=== PATIENT | male | born 1965 | race Caucasian/White ===

== ENCOUNTER 2017-08-10 11:57 | Inpatient (IN) | payer MEDICAID ==
[~2017-08-10] VITALS: Ht 172.7 cm; Wt 101.4 kg
[~2017-08-10 11:57] MED LIST: ACID1TAB3 PO; ERTA1VIA IV; [UNRECOGNIZED DRUG - REMARK]
[2017-08-10 13:27] LABS: BASOPHILS # (AUTO) 0.03 x10^3/uL (0-0.1); BASOPHILS % (AUTO) 1 % (0-1); EOSINOPHILS # (AUTO) 0.12 x10^3/uL (0-0.4); EOSINOPHILS % (AUTO) 2 % (1-7); LYMPHOCYTES # (AUTO) 0.99 x10^3/uL (1-3.4); LYMPHOCYTES % (AUTO) 15 % (22-44); MD NO; MEAN CORPUSCULAR HEMOGLOBIN 29.7 pg (27.5-34.5); MEAN CORPUSCULAR HGB CONC 34.1 g/dL (33.2-36.2); MEAN CORPUSCULAR VOLUME 87.1 fL (81-97); MEAN PLATELET VOLUME 9.6 fL (7.4-10.4); MONOCYTES # (AUTO) 0.53 x10^3/uL (0.2-0.8); MONOCYTES % (AUTO) 8 % (2-9); NEUTROPHILS # (AUTO) 4.83 x10^3/uL (1.8-6.8); NEUTROPHILS % (AUTO) 74 % (42-75); PLATELET COUNT 257 x10^3/uL (130-400); RED CELL DISTRIBUTION WIDTH 13.9 % (9.4-14.8)
[2017-08-10 13:32] LABS: ALBUMIN 3.1 g/dL (3.4-5.0); ANION GAP 7 mmol/L (5-15); CALCIUM 8.3 mg/dL (8.5-10.1); CHLORIDE 110 mmol/L (98-107); CREATININE 0.85 mg/dL (0.7-1.3)
[2017-08-10] MEDS ORDERED: ONDANSETRON 2MG/ML, 2ML IVPush ONE (14:30)
[2017-08-10] MEDS ORDERED: SODIUM CHLORIDE 0.9% 1,000ML IVBOLUS ONE (14:30)
[2017-08-10] MEDS ORDERED: AMPICILLIN/SULBACTAM 3 GM in SODIUM CHLORIDE 0.9% 100 ML IVPB ONE (14:30)
[2017-08-10] MEDS ORDERED: MORPHINE SULFATE 4 MG/ML, 1ML IVPush PRN (14:30)
[2017-08-10] MEDS ORDERED: MORPHINE SULFATE 4 MG/ML, 1ML ONE (15:07)
[2017-08-10] MEDS ORDERED: ONDANSETRON 2MG/ML, 2ML ONE (15:07)
[2017-08-10] MEDS ORDERED: LABETALOL 5MG/ML, 20ML IVPush PRN (16:00)
[2017-08-10] MEDS ORDERED: BISACODYL 10 MG SUPP PR PRN (16:00)
[2017-08-10] MEDS ORDERED: ACETAMINOPHEN 325 MG TABLET PO PRN (16:00)
[2017-08-10] MEDS ORDERED: ENALAPRILAT 1.25 MG/ML, 2ML IVPush PRN (16:00)
[2017-08-10] MEDS ORDERED: ONDANSETRON 2MG/ML, 2ML IVPush PRN (16:00)
[2017-08-10] MEDS ORDERED: ONDANSETRON ODT 4 MG PO PRN (16:00)
[2017-08-10 16:58] LABS: HCT (SEDRATE) 43.4 % (39.2-51.8)
[2017-08-10] MEDS: HEPARIN 5,000 UNITS/ML, 1ML SQ SCH (17:34)
[2017-08-10] MEDS: SODIUM CHLORIDE 0.9% 1,000 ML IV SCH (17:35)
[2017-08-10 18:41] VITALS: BP 118/74
[2017-08-10] MEDS ORDERED: DOCUSATE 100 MG CAPSULE PO PRN (21:00)
[2017-08-10] MEDS: AMPICILLIN/SULBACTAM 3 GM in SODIUM CHLORIDE 0.9% 100 ML IV SCH (21:31)
[2017-08-10] MEDS: MORPHINE SULFATE 4 MG/ML, 1ML IVPush PRN (21:31)
[2017-08-11 02:00] VITALS: BP 110/72
[2017-08-11] MEDS: HEPARIN 5,000 UNITS/ML, 1ML SQ SCH ×3 (03:31→21:31)
[2017-08-11] MEDS: AMPICILLIN/SULBACTAM 3 GM in SODIUM CHLORIDE 0.9% 100 ML IV SCH ×4 (03:31→21:31)
[2017-08-11 05:48] LABS: BASOPHILS # (AUTO) 0.05 x10^3/uL (0-0.1); BASOPHILS % (AUTO) 1 % (0-1); EOSINOPHILS % (AUTO) 3 % (1-7); LYMPHOCYTES # (AUTO) 1.57 x10^3/uL (1-3.4); LYMPHOCYTES % (AUTO) 25 % (22-44); MD NO; MEAN CORPUSCULAR HEMOGLOBIN 29.5 pg (27.5-34.5); MEAN CORPUSCULAR HGB CONC 33.5 g/dL (33.2-36.2); MEAN CORPUSCULAR VOLUME 88.1 fL (81-97); MEAN PLATELET VOLUME 9.3 fL (7.4-10.4); MONOCYTES # (AUTO) 0.75 x10^3/uL (0.2-0.8); MONOCYTES % (AUTO) 12 % (2-9); NEUTROPHILS # (AUTO) 3.68 x10^3/uL (1.8-6.8); NEUTROPHILS % (AUTO) 59 % (42-75); PLATELET COUNT 251 x10^3/uL (130-400); RED BLOOD COUNT 4.59 x10^6/uL (4.38-5.82); RED CELL DISTRIBUTION WIDTH 13.6 % (9.4-14.8)
[2017-08-11 06:01] LABS: CHLORIDE 111 mmol/L (98-107)
[2017-08-11 06:08] LABS: ANION GAP 7 mmol/L (5-15); CALCIUM 7.6 mg/dL (8.5-10.1); CHOL/HDL RATIO 4.8; CHOLESTEROL, TOTAL 116 mg/dL (140-239); CREATININE 0.93 mg/dL (0.7-1.3); HDL CHOL % 21 % (26-37); HDL CHOLESTEROL (DIRECT) 24 mg/dL (40-60); LDL CHOLESTEROL,CALCULATED 71 mg/dL (54-169); TRIGLYCERIDES 105 mg/dL (50-200); VLDL CHOLESTEROL 21 mg/dL (0-25)
[2017-08-11 08:17] VITALS: BP 101/49
[2017-08-11] MEDS: MORPHINE SULFATE 4 MG/ML, 1ML IVPush PRN ×3 (08:23→20:38)
[2017-08-11] MEDS: SODIUM CHLORIDE 0.9% 1,000 ML IV SCH ×2 (08:25→21:31)
[2017-08-11] MEDS: SENNA/DOCUSATE TABLET PO SCH (09:00)
[2017-08-11] MEDS ORDERED: GADOBUTROL 10 MMOL/10 ML PFS ONE (11:52)
[2017-08-11] MEDS ORDERED: HYDROcodone/APAP 5/325 TABLET ONE (12:44)
[2017-08-11] MEDS ORDERED: HYDROcodone/APAP 5/325 TABLET PO PRN (13:00)
[2017-08-11 14:51] VITALS: BP 103/68
[2017-08-11 18:29] VITALS: BP 125/81
[2017-08-11 18:50] VITALS: BP 107/71
[2017-08-12 01:31] VITALS: BP 108/68
[2017-08-12] MEDS: AMPICILLIN/SULBACTAM 3 GM in SODIUM CHLORIDE 0.9% 100 ML IV SCH ×4 (03:23→21:54)
[2017-08-12] MEDS: MORPHINE SULFATE 4 MG/ML, 1ML IVPush PRN ×4 (05:33→21:55)
[2017-08-12] MEDS: HEPARIN 5,000 UNITS/ML, 1ML SQ SCH ×3 (05:33→21:54)
[2017-08-12 05:49] LABS: BASOPHILS # (AUTO) 0.06 x10^3/uL (0-0.1); BASOPHILS % (AUTO) 1 % (0-1); EOSINOPHILS % (AUTO) 4 % (1-7); LYMPHOCYTES # (AUTO) 1.65 x10^3/uL (1-3.4); LYMPHOCYTES % (AUTO) 29 % (22-44); MD NO; MEAN CORPUSCULAR HEMOGLOBIN 29.8 pg (27.5-34.5); MEAN CORPUSCULAR VOLUME 87.7 fL (81-97); MEAN PLATELET VOLUME 9.6 fL (7.4-10.4); MONOCYTES # (AUTO) 0.59 x10^3/uL (0.2-0.8); MONOCYTES % (AUTO) 10 % (2-9); NEUTROPHILS # (AUTO) 3.25 x10^3/uL (1.8-6.8); NEUTROPHILS % (AUTO) 57 % (42-75); PLATELET COUNT 262 x10^3/uL (130-400); RED BLOOD COUNT 4.73 x10^6/uL (4.38-5.82); RED CELL DISTRIBUTION WIDTH 13.6 % (9.4-14.8)
[2017-08-12 05:52] LABS: ANION GAP 7 mmol/L (5-15); CALCIUM 7.8 mg/dL (8.5-10.1); CHLORIDE 111 mmol/L (98-107)
[2017-08-12 05:54] LABS: CREATININE 0.79 mg/dL (0.7-1.3)
[2017-08-12 07:01] VITALS: BP 99/60
[2017-08-12] MEDS: SENNA/DOCUSATE TABLET PO SCH (08:51)
[2017-08-12] MEDS: SODIUM CHLORIDE 0.9% 1,000 ML IV SCH (12:16)
[2017-08-12 13:20] VITALS: BP 113/69
[2017-08-12 21:36] VITALS: BP 128/71
[2017-08-13] MEDS: SODIUM CHLORIDE 0.9% 1,000 ML IV SCH ×2 (03:00→15:55)
[2017-08-13] MEDS: AMPICILLIN/SULBACTAM 3 GM in SODIUM CHLORIDE 0.9% 100 ML IV SCH ×4 (03:00→20:10)
[2017-08-13 03:58] VITALS: BP 126/93
[2017-08-13] MEDS: MORPHINE SULFATE 4 MG/ML, 1ML IVPush PRN ×4 (05:02→21:15)
[2017-08-13] MEDS: HEPARIN 5,000 UNITS/ML, 1ML SQ SCH ×3 (05:02→20:11)
[2017-08-13 08:27] VITALS: BP 120/80
[2017-08-13] MEDS: SENNA/DOCUSATE TABLET PO SCH (09:00)
[2017-08-13 14:53] VITALS: BP 106/62
[2017-08-13 19:35] VITALS: BP 101/64
[2017-08-14 02:30] VITALS: BP 113/71
[2017-08-14] MEDS: AMPICILLIN/SULBACTAM 3 GM in SODIUM CHLORIDE 0.9% 100 ML IV SCH ×3 (03:39→17:50)
[2017-08-14] MEDS: HEPARIN 5,000 UNITS/ML, 1ML SQ SCH ×2 (05:00→17:48)
[2017-08-14 05:27] LABS: BASOPHILS # (AUTO) 0.04 x10^3/uL (0-0.1); BASOPHILS % (AUTO) 1 % (0-1); EOSINOPHILS # (AUTO) 0.22 x10^3/uL (0-0.4); EOSINOPHILS % (AUTO) 3 % (1-7); LYMPHOCYTES # (AUTO) 1.64 x10^3/uL (1-3.4); LYMPHOCYTES % (AUTO) 24 % (22-44); MD NO; MEAN CORPUSCULAR HEMOGLOBIN 29.3 pg (27.5-34.5); MEAN CORPUSCULAR HGB CONC 33.5 g/dL (33.2-36.2); MEAN CORPUSCULAR VOLUME 87.4 fL (81-97); MONOCYTES # (AUTO) 0.53 x10^3/uL (0.2-0.8); MONOCYTES % (AUTO) 8 % (2-9); NEUTROPHILS # (AUTO) 4.37 x10^3/uL (1.8-6.8); NEUTROPHILS % (AUTO) 64 % (42-75); PLATELET COUNT 278 x10^3/uL (130-400); RED BLOOD COUNT 4.94 x10^6/uL (4.38-5.82); RED CELL DISTRIBUTION WIDTH 13.5 % (9.4-14.8)
[2017-08-14 05:33] LABS: INTERNATIONAL NORMALIZED RATIO 0.99 (0.93-1.1); PROTHROMBIN TIME 10.2 Seconds (9.6-11.5)
[2017-08-14 05:37] LABS: CHLORIDE 110 mmol/L (98-107)
[2017-08-14 05:42] LABS: ALANINE AMINOTRANSFERASE 74 U/L (12-78); ALBUMIN 2.9 g/dL (3.4-5.0); ALKALINE PHOSPHATASE 66 U/L (45-117); ANION GAP 6 mmol/L (5-15); BILIRUBIN,TOTAL 0.4 mg/dL (0.2-1.0); C-REACTIVE PROTEIN, QUANT 0.81 mg/dL (0.02-0.49); CREATININE 0.96 mg/dL (0.7-1.3); TOTAL PROTEIN 6.6 g/dL (6.4-8.2)
[2017-08-14 06:37] LABS: HCT (SEDRATE) 41.5 % (39.2-51.8)
[2017-08-14 07:12] VITALS: BP 111/73
[2017-08-14] MEDS ORDERED: PROPOFOL 10 MG/ML, 20ML ONE ×2 (08:24→08:55)
[2017-08-14] MEDS ORDERED: CEFAZOLIN 1,000 MG ONE ×2 (08:24)
[2017-08-14] MEDS ORDERED: PHENYLEPHRINE 10 MG/ML ONE (08:25)
[2017-08-14] MEDS ORDERED: FENTANYL PF 250 MCG/5ML ONE (08:28)
[2017-08-14] MEDS ORDERED: MIDAZOLAM 1 MG/ML, 2ML ONE (08:28)
[2017-08-14] MEDS ORDERED: ROPIvacaine/PF 0.2%, 20 ML ONE (08:41)
[2017-08-14] MEDS ORDERED: ONDANSETRON 2MG/ML, 2ML ONE (08:55)
[2017-08-14] MEDS ORDERED: DEXAMETHASONE 4 MG/ML, 1ML ONE ×2 (08:58)
[2017-08-14] MEDS: SODIUM CHLORIDE 0.9% 1,000 ML IV SCH ×2 (09:00→21:42)
[2017-08-14] MEDS ORDERED: PROMETHAZINE 12.5 MG SUPP PR PRN (09:30)
[2017-08-14] MEDS ORDERED: ACETAMINOPHEN 325 MG TABLET PO PRN (09:30)
[2017-08-14] MEDS ORDERED: FENTANYL PF 100 MCG/2ML IV PRN (09:30)
[2017-08-14] MEDS ORDERED: OXYcodone 5 MG/5 ML ORAL.SOL UDC PO PRN (09:30)
[2017-08-14] MEDS ORDERED: HYDROmorphone 2 MG/ML, 1ML ONE (09:50)
[2017-08-14] MEDS: HYDROmorphone 1 MG/ML, 1ML IV PRN ×4 (09:51→10:40)
[2017-08-14] MEDS ORDERED: ONDANSETRON 2MG/ML, 2ML IV PRN (11:30)
[2017-08-14] MEDS ORDERED: HYDROcodone/APAP 7.5-325MG/15ML UDC PO PRN (11:30)
[2017-08-14] MEDS ORDERED: HYDROmorphone 1 MG/ML, 1ML IV PRN (11:30)
[2017-08-14] MEDS: KETOROLAC 30 MG/1 ML IV SCH ×2 (11:57→21:38)
[2017-08-14] MEDS: SENNA/DOCUSATE TABLET PO SCH (11:57)
[2017-08-14 12:04] VITALS: BP 95/57
[2017-08-14] MEDS: MORPHINE SULFATE 4 MG/ML, 1ML IVPush PRN (18:02)
[2017-08-14 19:58] VITALS: BP 95/65
[2017-08-14] MEDS: PREGABALIN 150 MG CAPSULE PO SCH (21:38)
[2017-08-15] MEDS: AMPICILLIN/SULBACTAM 3 GM in SODIUM CHLORIDE 0.9% 100 ML IV SCH ×4 (00:35→18:15)
[2017-08-15 00:40] VITALS: BP 89/44
[2017-08-15] MEDS: HEPARIN 5,000 UNITS/ML, 1ML SQ SCH ×3 (01:52→17:21)
[2017-08-15 04:45] VITALS: BP 96/63
[2017-08-15] MEDS: KETOROLAC 30 MG/1 ML IV SCH (04:59)
[2017-08-15 07:53] VITALS: BP 98/65
[2017-08-15] MEDS: SENNA/DOCUSATE TABLET PO SCH (09:00)
[2017-08-15] MEDS: PREGABALIN 150 MG CAPSULE PO SCH ×2 (09:55→21:46)
[2017-08-15] MEDS: MORPHINE SULFATE 4 MG/ML, 1ML IVPush PRN (10:03)
[2017-08-15 12:31] VITALS: BP 150/79
[2017-08-15] MEDS: OXYcodone/APAP 5/325MG TABLET PO PRN ×3 (16:35→21:46)
[2017-08-15] MEDS: ALUMINUM/MAG/SIMETHICONE 30 ML UDC PO PRN ×2 (16:35→17:21)
[2017-08-15 20:44] VITALS: BP 131/78
[2017-08-16 00:56] VITALS: BP 100/67
[2017-08-16] MEDS: AMPICILLIN/SULBACTAM 3 GM in SODIUM CHLORIDE 0.9% 100 ML IV SCH ×3 (01:07→13:04)
[2017-08-16] MEDS: HEPARIN 5,000 UNITS/ML, 1ML SQ SCH ×3 (01:12→17:47)
[2017-08-16] MEDS: OXYcodone/APAP 5/325MG TABLET PO PRN ×4 (06:31→21:25)
[2017-08-16 07:39] VITALS: BP 102/65
[2017-08-16] MEDS: PREGABALIN 150 MG CAPSULE PO SCH ×2 (09:11→21:25)
[2017-08-16] MEDS: SENNA/DOCUSATE TABLET PO SCH (09:11)
[2017-08-16 13:09] VITALS: BP 117/73
[2017-08-16 20:05] VITALS: BP 119/78
[2017-08-17 02:00] VITALS: BP 101/62
[2017-08-17] MEDS: HEPARIN 5,000 UNITS/ML, 1ML SQ SCH ×3 (02:02→17:34)
[2017-08-17 05:41] LABS: BASOPHILS # (AUTO) 0.06 x10^3/uL (0-0.1); BASOPHILS % (AUTO) 1 % (0-1); EOSINOPHILS # (AUTO) 0.18 x10^3/uL (0-0.4); EOSINOPHILS % (AUTO) 3 % (1-7); LYMPHOCYTES # (AUTO) 2.08 x10^3/uL (1-3.4); LYMPHOCYTES % (AUTO) 30 % (22-44); MD NO; MEAN CORPUSCULAR HEMOGLOBIN 29.3 pg (27.5-34.5); MEAN CORPUSCULAR HGB CONC 33.3 g/dL (33.2-36.2); MEAN CORPUSCULAR VOLUME 87.9 fL (81-97); MEAN PLATELET VOLUME 9.1 fL (7.4-10.4); MONOCYTES # (AUTO) 0.71 x10^3/uL (0.2-0.8); MONOCYTES % (AUTO) 10 % (2-9); NEUTROPHILS # (AUTO) 3.88 x10^3/uL (1.8-6.8); NEUTROPHILS % (AUTO) 56 % (42-75); PLATELET COUNT 261 x10^3/uL (130-400); RED BLOOD COUNT 4.86 x10^6/uL (4.38-5.82); RED CELL DISTRIBUTION WIDTH 13.8 % (9.4-14.8)
[2017-08-17 07:02] VITALS: BP 111/73
[2017-08-17] MEDS: OXYcodone/APAP 5/325MG TABLET PO PRN ×2 (08:45→17:21)
[2017-08-17] MEDS: PREGABALIN 150 MG CAPSULE PO SCH (08:45)
[2017-08-17] MEDS: SENNA/DOCUSATE TABLET PO SCH (08:45)
[2017-08-17 12:54] VITALS: BP 101/67
[2017-08-17 16:55] VITALS: BP 120/79
[2017-08-17] MEDS ORDERED: OXYC1TAB7 PO (17:09)
== END 2017-08-17 18:40 | disposition home or self-care (01) | DRG 475 ==
LOC: ED 14:33 → EDIP 14:38 → 4NOR 16:01
PROVIDERS: ADMIT Internal Medicine; ATTEND Internal Medicine
PROC: 0Y6J0Z1 Detachment at Left Lower Leg, High, Open Approach (ICD-10-PCS; principal; 2017-08-14 08:30)
DX: M86.171 Other acute osteomyelitis, right ankle and foot (principal); L03.116 Cellulitis of left lower limb; M00.9 Pyogenic arthritis, unspecified; G83.9 Paralytic syndrome, unspecified; M86.172 Other acute osteomyelitis, left ankle and foot; M86.672 Other chronic osteomyelitis, left ankle and foot; F17.200 Nicotine dependence, unspecified, uncomplicated; L97.529 Non-pressure chronic ulcer of other part of left foot with unspecified severity; I10 Essential (primary) hypertension; M65.9 Synovitis and tenosynovitis, unspecified; Q66.0 Congenital talipes equinovarus; Z82.3 Family history of stroke; Z82.49 Family history of ischemic heart disease and other diseases of the circulatory system; Z89.422 Acquired absence of other left toe(s); Z88.8 Allergy status to other drugs, medicaments and biological substances
CPT/HCPCS: 36415; 80048; 80053; 80061; 82040; 83605; 85025; 85610; 85651; 86140; 87040; 88307; 88311; 93005; 93922; 96361; 96365; 96375; A9585; J0295; J0690; J1100; J1170; J1644; J1885; J2250; J2405; J2704; J2795; J3010; J2370; J7030